=== PATIENT | female | born 2000 | race African-American/Black ===

== ENCOUNTER 2020-02-06 22:15 | Emergency (ER) | payer OTHER ==
[~2020-02-06] VITALS: Ht 188 cm; Wt 104.3 kg
--- NOTE | ~2020-02-06 | EMS ---
[address] [address] EMS Patient Care Report Name: HUY WELLS Room #: DEP RICHY Benz#: [id number] Admission: 02/06/20 Attend Phys: Discharge: 02/07/20 Date of : 00 Report #: [id number] THIS REPORT FOR: //name// Report Transmitted: 02/09/2020 02:26 EMS Care Summary [place], [place]/[facility] Incident [id number] @ 02/06/2020 21:27 Incident Location [address] [place], [place] [id number] Patient HUY WELLS Female, 19 Years 2000 Patient Address [address] [place], [place] [id number] Patient History Anxiety Disorder (Panic Attacks),Anxiety, Patient Allergies No known allergies, Patient Medications Fexofenadine, Chief Complaint ANXIETY Disposition Transported No Lights/[place] Dispatch Reason Breathing Problem Transported To [facility] Narrative DISPATCHED EMERGENCY ON A BREATHING PROLEM. PUMPER 42 ON SCENE UPON ARRIVAL. 19 Y/O FEMALE LAYING ON RIGHT SIDE ON BEDROOM FLOOR APPEARING IN NO IMMEDIATE [address] [address] EMS Patient Care Report Name: HUY WELLS Room #: DEP Tuyet#: [id number] Admission: 02/06/20 Attend Phys: Discharge: 02/07/20 Date of : 00 Report #: [id number] DISTRESS. GCS 15 AND ALERT. CONSENTS FOR TX AND TRANSPORTATION. V/S'S OBTAINED PRIOR TO EMS ARRIVAL BY PUMPER 42. PT STATES THAT SHE HAS BEEN SEEN IN THE HOSPITAL 4 TIMES IN THE LAST 2 WEEKS FOR HEADACHE, SOA, AND SORE THROAT. PT STATES SHE WAS DIAGNOSED WITH A SINUS INFECTION. PT STATES SHE RECIEVED A MEDICATION BUT STOPPED TAKING IT. CHIEF COMPLAINT IS THAT SHE IS VERY ANXIOUS. R/R IS REGULAR AND NON LABORED. ALSO STATES SHE IS (LAST PERIOD WAS END OF NOVEMBER) MOVED WITHOUT INCIDENT TO AMBULANCE VIA STRETCHER. PLACED ON MONITOR. V/S'S OBTAINED. TRANSPORTED TO [facility]. REASSESSED ENROUTE. REMAINS GCS 15 AND ALERT. HEADACHE PAIN REMAINS AT 8. V/S'S CONTINUOUSLY MONITORED ENROUTE. REPORT CALLED TO HOSPITAL. MOVED WITHOUT INCIDENT TO ER HOSPITAL BED 11. PT CARE TRANSFERRED TO ED RN. Initial Vitals @PTAP: 100,R: 20,BP: 114/76,Pain: 8/10,GCS: 15,Revised Trauma: 12, @21:55P: 93,R: 18,BP: 98/78,Pain: 8/10,GCS: 15,SpO2: 100,Revised Trauma: 12, @21:47P: 102,R: 20,BP: 108/72,Pain: 8/10,GCS: 15,Temp: 98.1F,Revised Trauma: 12,PR Suspected: false Assessments @21:41MENTAL:Person Oriented,Time Oriented,Place Oriented,Event Oriented,SKIN:HEENT:Neck/Airway: No Abnormalities,LUNG SOUNDS:General: No Abnormalities,ABDOMEN:General: No Abnormalities,PELVIS//GI:EXTREMITIES:Capillary Refill: Right Lower: < 2 Sec,Capillary Refill: Left Lower: < 2 Sec,Capillary Refill: Left Upper: < 2 Sec,Capillary Refill: Right Upper: < 2 Sec,Left Arm: No Abnormalities,Right Arm: No Abnormalities,Left Leg: No Abnormalities,Right Leg: No Abnormalities,PULSE:Radial: 2+ Normal,NEURO:No Abnormalities, Impression Anxiety reaction/Emotional upset Procedures @21:41ALS AssessmentResponse: UnchangedSucceeded@21:473-Lead ECGResponse: UnchangedSucceeded@21:44StretcherResponse: Unchanged Timeline ALARM SIGNALER,BP: 114/76 M,PULSE: 100,RR: 20 R,SPO2: Ox,ETCO2: ,BG: ,PAIN: 8,GCS: 15, 21:26,Call Received 21:26,Dispatch Notified 21:27,Dispatched 21:28,En Route 21:36,On Scene 21:40,At Patient 21:41,ALS Assessment,Response: UnchangedSucceeded, 21:44,Stretcher,Response: Unchanged 21:47,3-Lead ECG,Response: UnchangedSucceeded, [facility] [address] [place] [address] EMS Patient Care Report Name: HUY WELLS [facility] #: [id number] Admission: 02/06/20 Attend Phys: Discharge: 02/07/20 Date of : 00 Report #: [id number] 21:47,BP: 108/72 M,PULSE: 102,RR: 20 R,SPO2: Ox,ETCO2: ,BG: ,PAIN: 8,GCS: 15, 21:55,BP: 98/78 M,PULSE: 93,RR: 18 R,SPO2: 100 Ox,ETCO2: ,BG: ,PAIN: 8,GCS: 15, 21:56,Depart Scene 22:09,At Destination 22:32,Call Closed Disclaimer v1.1 Copyright 2020 [employer] This EMS Care Summary contains data elements from the applicable legal record (which may be displayed differently). It is designed to provide pertinent information for the following purposes: continuity of care, clinical quality, and state data reporting. The complete legal record is available to ED staff and administrators of the receiving hospital in [facility]'s Patient Tracker. All data is provided "as is."
[2020-02-06] MEDS ORDERED: ZITHROMAX TRI-500 MG (22:18)
[2020-02-06] MEDS ORDERED: FEXOFENADINE-P1 EACH PO (22:19)
[2020-02-07 00:02] LABS: HEMATOCRIT 37.8 % (37.0-47.0); MCH 30.2 pg (26.0-34.0); MCHC 34.3 g/dL (28.0-37.0); PLATELET COUNT 216 thou/uL (150-400); RBC 4.29 mil/uL (4.20-5.00); RDW 13.6 % (10.5-14.5); WBC 7.4 thou/uL (4.0-11.0)
[2020-02-07 00:09] LABS: CREATININE 0.8 mg/dL (0.6-1.0); POTASSIUM 3.3 mmol/L (3.5-5.1)
[2020-02-07 00:15] LABS: ALBUMIN 3.6 g/dL (3.4-5.0); TOTAL BILIRUBIN 0.3 mg/dL (0.2-1.0); TOTAL PROTEIN 8.1 g/dL (6.4-8.2)
[2020-02-07 00:37] LABS: ABSOLUTE NEUTROPHILS 5.3 thou/uL (1.4-8.2)
[2020-02-07 00:38] LABS: PLATELET ESTIMATE NORMAL
[2020-02-07 00:40] VITALS: BP 123/54
== END 2020-02-07 00:40 | disposition home or self-care (01) ==
LOC: ER 22:15
PROVIDERS: Emergency Medicine
DX: O99.511 Diseases of the respiratory system complicating pregnancy, first trimester (principal); J02.9 Acute pharyngitis, unspecified; R06.02 Shortness of breath; Z20.828 Contact with and (suspected) exposure to other viral communicable diseases; O21.8 Other vomiting complicating pregnancy; Z3A.01 Less than 8 weeks gestation of pregnancy; Z88.8 Allergy status to other drugs, medicaments and biological substances; Z88.1 Allergy status to other antibiotic agents